=== PATIENT | male | born 1975 | race Hispanic/Latino ===

== ENCOUNTER 2021-05-22 15:49 | Emergency (ER) | payer SELFPAY ==
[2021-05-22] MEDS ORDERED: NA CHLORIDE 0.9% 2,000 ML ONE (17:13)
[2021-05-22 17:15] LABS: Absolute Lymphocytes (CBC) 2.3 K/uL (0.7-4.9); Basophils % 1.1 % (0-1.3); Hematocrit 44.4 % (39.6-49.0); Lymphocytes % 26.8 % (15.3-44.8); RBC Red Blood Cell Count 5.09 M/uL (4.33-5.43)
[2021-05-22 17:31] LABS: Urine Blood Negative (Negative); Urine Glucose 3+ (Negative); Urine Protein Negative (Negative); Urine pH 5.5 (5.0-7.0)
[2021-05-22 17:48] LABS: Urine Bacteria <20 /HPF (NONE SEEN); Urine RBC NONE SEEN /HPF (NONE SEEN)
[2021-05-22 19:32] LABS: ALT/SGPT 30 U/L (12-78); AST/SGOT 12 U/L (15-37); Albumin 3.1 g/dL (3.4-5.0); Alkaline Phosphatase 122 U/L (45-117); BUN Blood Urea Nitrogen 7 mg/dL (7-18); Bicarbonate 24 mmol/L (21-32); Bilirubin Direct < 0.1 mg/dL (0-0.2); Bilirubin Total 0.3 mg/dL (0.2-1.0); Glucose Level 321 mg/dL (74-106); Lipase 118 U/L (73-393); Potassium 3.7 mmol/L (3.5-5.1); Protein, Total 6.8 g/dL (6.4-8.2); Sodium Level 135 mmol/L (136-145)
--- NOTE | 2021-05-22 20:37 | RAD REPORT ---
EXAM DESCRIPTION: CT - [id number] - 05/22/2021 8:18 pm CLINICAL HISTORY: PAIN, head and neck COMPARISON: <Comparisons> TECHNIQUE: Axial 5 mm thick images of the head were obtained. Axial 2 mm thick images of the cervic al spine were obtained with sagittal and coronal reconstruction images generated and reviewed. All CT scans are performed using dose optimization technique as appropriate and may include automated exposure control or mA/KV adjustment according to patient size. FINDINGS: No intracranial hemorrhage, mass, edema or acute intracranial finding. No suspicion for ac cristela infarction. No extra-axial fluid collections. Mastoid air cells and paranasal sinuses are clear. No globe or orbit abnormality seen. Cervical body height and alignment are normal. No disk space narrowing. No fracture or acute bony abn ormality. Central canal detail is inherently limited. No paraspinal mass or hematoma. IMPRESSION: Negative CT head examination for acute or significant finding. Negative CT cervical spine examination for acute or significant finding.
[2021-05-22] MEDS ORDERED: NA CHLORIDE 0.9% 1,000 ML ONE (20:54)
[2021-05-22] MEDS ORDERED: INSULIN -REGULAR HUMAN 50 UNIT/0.5 ML ML ONE (20:54)
--- NOTE | 2021-05-22 21:24 | EDPHYS ---
Physician Documentation [facility] Name: Dg Woods Age: 46 yrs Sex: Male : 1975 Arrival Date: 05/22/2021 Time: 15:56 Bed 21 Private MD: ED Physician Fausto Curry HPI: 05/22 17:00 This 46 yrs old Male presents to ER via Ambulatory with complaints of Vision cp Problem. 17:00 The patient is experiencing blurred vision. Onset: The symptoms/episode began/occurred cp 20 day(s) ago. 17:00 Duration: the symptoms are intermittent. Associated signs and symptoms: Pertinent cp positives: dizziness, polyuria, Pertinent negatives: fever, headache. Patient does not utilize any form of vision correction. Severity of symptoms: in the emergency department the symptoms have improved moderately. Historical: - Allergies: 16:23 No Known Allergies; jl7 - Home Meds: 16:23 Aspirin Oral [Active]; jl7 - PMHx: 16:23 None; jl7 - PSHx: 16:23 None; jl7 - Social history:: Smoking status: unknown. ROS: 17:05 Constitutional: Negative for body aches, chills, fever, poor PO intake. cp 17:05 Eyes: Positive for blurry vision, Negative for discharge, pain, redness, vision loss. cp 17:05 ENT: Negative for drainage from ear(s), ear pain, sore throat, difficulty swallowing, difficulty handling secretions. 17:05 Cardiovascular: Negative for chest pain, edema, palpitations. 17:05 Respiratory: Negative for cough, shortness of breath, wheezing. 17:05 Abdomen/GI: Negative for abdominal pain, nausea, vomiting, and diarrhea. 17:05 Neuro: Positive for dizziness, Negative for altered mental status, loss of consciousness, syncope, weakness. 17:05 Endocrine: Positive for polyuria. 17:05 All other systems are negative. Exam: 17:10 Constitutional: The patient appears in no acute distress, alert, awake, cp non-diaphoretic, non-toxic, well developed, well nourished, overweight 17:10 Head/Face: Normocephalic, atraumatic. cp 17:10 Eyes: Periorbital structures: appear normal, Conjunctiva: normal, no exudate, no injection, Sclera: no appreciated abnormality, Lids and lashes: appear normal, bilaterally. 17:10 ENT: External ear(s): are unremarkable, Ear canal(s): are normal, clear, TM's: dullness, bilaterally, Nose: is normal, Mouth: Lips: moist, Oral mucosa: moist, Posterior pharynx: Airway: no evidence of obstruction, patent. 17:10 Neck: ROM/movement: is normal, is supple, without pain, no range of motions limitations, no meningismus. 17:10 Chest/axilla: Inspection: normal, Palpation: is normal, no crepitus, no tenderness. 17:10 Cardiovascular: Rate: normal, Rhythm: regular, Edema: is not appreciated, JVD: is not appreciated. 17:10 Respiratory: the patient does not display signs of respiratory distress, Respirations: normal, no use of accessory muscles, no retractions, labored breathing, is not present, Breath sounds: are clear throughout, no decreased breath sounds, no stridor, no wheezing. 17:10 Abdomen/GI: Inspection: abdomen appears normal, Palpation: abdomen is soft and non-tender, in all quadrants. 17:10 Skin: no rash present. 17:10 Neuro: Orientation: to person, place \T\ time. Mentation: is normal, Cerebellar function: is grossly normal, Motor: moves all fours, strength is normal, Sensation: is normal. Vital Signs: 16:18 BP 152 / 91; Pulse 84; Resp 17; Temp 97.5; Pulse Ox 99% on R/A; jl7 MDM: 19:39 Patient medically screened. 21:23 Data reviewed: vital signs, nurses notes, lab test result(s), radiologic studies, CT cp scan, and as a result, I will discharge patient. 05/22 16:37 Order name: Ketone, Serum; Complete Time: 19:39 cp 05/22 16:37 Order name: Basic Metabolic Panel; Complete Time: 19:39 cp 05/22 19:40 Interpretation: Normal except: NA 135; GLUC 321; CRE 0.49; CA 7.3. cp 05/22 16:37 Order name: CBC with Diff; Complete Time: 19:39 05/22 19:41 Interpretation: Normal except: EOSINOPHIL % 9.5; EOSA 0.8. cp 05/22 16:37 Order name: Hepatic Function; Complete Time: 19:39 cp 05/22 19:41 Interpretation: Normal except: AST 12; ALK 122; ALB 3.1; GLOB 3.7; A/G 0.8. 05/22 16:37 Order name: Lipase; Complete Time: 19:39 cp 05/22 16:37 Order name: Urine Microscopic Only; Complete Time: 19:39 05/22 16:54 Order name: ABG 05/22 16:54 Order name: ABG Arterial Blood Gas EDMS 05/22 17:30 Order name: Urine Dipstick-Ancillary; Complete Time: 19:39 EDMS 05/22 18:57 Order name: Glucose, Ancillary Testing; Complete Time: 19:39 EDMS 05/22 20:12 Order name: CT Head C Spine; Complete Time: 20:47 05/22 20:48 Interpretation: Reviewed report. 05/22 16:37 Order name: IV Saline Lock; Complete Time: 16:57 05/22 16:37 Order name: Labs collected and sent; Complete Time: 16:57 05/22 21:23 Order name: Accucheck Blood Glucose cp Administered Medications: 16:56 Drug: NS 0.9% 1000 ml Route: IV; Rate: 1 bolus; Site: left wrist; jl7 16:57 Drug: NS 0.9% 1000 ml Route: IV; Rate: 1 bolus; Site: left wrist; jl7 20:36 Drug: NovoLIN R (insulin regular human) 5 units {Co-Signature: claudette (Ruth Elder RN).} bb Route: Sub-Q; Site: right upper arm; 21:22 Follow up: Response: No adverse reaction bb 20:36 Drug: NS 0.9% 1000 ml Route: IV; Rate: 1 bolus; Site: left hand; bb 21:39 Follow up: IV Status: Completed infusion; IV Intake: 1000ml bb Disposition: 21:30 Chart complete. 05/23 07:50 Co-signature as Attending Physician, Fausto Curry MD I agree with the assessment and kdr plan of care. Disposition Summary: 05/22/21 21:23 Discharge Ordered Location: Home cp Problem: new cp Symptoms: have improved cp Condition: Stable cp Diagnosis - Diabetes mellitus due to underlying condition with hyperglycemia cp - Elevated blood-pressure reading, without diagnosis of hypertension cp Followup: cp - With: Private Physician - When: 1 - 2 days - Reason: Recheck today's complaints Discharge Instructions: - Discharge Summary Sheet cp - Hyperglycemia cp - Form - Daily Diabetes Record cp - Blood Glucose Monitoring, Adult cp - Diabetes Mellitus and Nutrition, Adult cp - How to Take Your Blood Pressure, [id number] cp - Form - Blood Pressure Record Sheet cp Forms: - Medication Reconciliation Form cp - Thank You Letter cp - Antibiotic Education cp - Prescription Opioid Use cp Prescriptions: - Metformin 500 mg Oral Tablet - take 1 tablet by ORAL route once daily for 7 days Then take 1 tablet with cp morning meals AND evening meals; 60 tablet; Refills: 0, Product Selection Permitted Signatures: Dispatcher [employer] EDMS Fausto Curry MD MD kdr Ballard, Brenda, THERON RN Sanjeev Price PA PA cp Zoraida Nichole RN RN jl7 Ruth Elder RN, ea Corrections: (The following items were deleted from the chart) 05/22 16:27 16:23 Allergies: PENICILLINS; shalonda jl7 20:15 19:54 Head Brain Wo Cont+CT.RAD.BRZ ordered. EDMS EDMS
--- NOTE | 2021-05-22 21:24 | ER ---
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 Denies N/V/D, denies headache, denies dizziness; reports pain to the back of neck. Coronavirus screen: Client denies travel out of the [place] in the last 14 days. At this time, the client does not indicate any symptoms associated with coronavirus-19. Ebola Screen: No symptoms or risks identified at this time. Initial Sepsis Screen: Does the patient meet any 2 criteria? No. Patient's initial sepsis screen is negative. Does the patient have a suspected source of infection? No. Patient's initial sepsis screen is negative. Risk Assessment: Do you want to hurt yourself or someone else? Patient reports no desire to harm self or others. Onset of symptoms was May 01, 2021. Care prior to arrival: None. 16:18 Method Of Arrival: Ambulatory [facility] 16:18 Acuity: JENNIFFER 3 jl7 Historical: - Allergies: 16:23 No Known Allergies; jl7 - Home Meds: 16:23 Aspirin Oral [Active]; jl7 - PMHx: 16:23 None; jl7 - PSHx: 16:23 None; jl7 - Social history:: Smoking status: unknown. Screenin:27 Abuse screen: Denies threats or abuse. Denies injuries from another. Nutritional jl7 screening: No deficits noted. Tuberculosis screening: No symptoms or risk factors identified. Assessment: 16:27 Reassessment: MARITA Pace in triage assessing pt. [facility] 21:38 Reassessment: Patient is alert, oriented x 3, equal unlabored respirations, skin bb warm/dry/pink. pt verbalized understanding of and agrees to plan of care discharge instructions given pt ambulated with steady gait to exit accompanied by family. Vital Signs: 16:18 BP 152 / 91; Pulse 84; Resp 17; Temp 97.5; Pulse Ox 99% on R/A; jl7 ED Course: 15:56 Patient arrived in ED. mr 16:23 Triage completed. jl7 16:27 Patient has correct armband on for positive identification. jl7 16:34 Sanjeev Hernandez PA is PHCP. cp 16:34 Fausto Curry MD is Attending Physician. cp 16:57 Initial lab(s) drawn, by ar, sent to lab. Inserted saline lock: 20 gauge in left wrist, jl7 using aseptic technique. Blood collected. 18:55 ABG Sent. jl7 19:43 Juana Moa, RN is Primary Nurse. ch4 20:17 CT Head C Spine In Process Unspecified. EDMS 21:39 IV discontinued, intact, bleeding controlled, No redness/swelling at site. Pressure bb dressing applied. 21:40 No provider procedures requiring assistance completed. bb Administered Medications: 16:56 Drug: NS 0.9% 1000 ml Route: IV; Rate: 1 bolus; Site: left wrist; jl7 16:57 Drug: NS 0.9% 1000 ml Route: IV; Rate: 1 bolus; Site: left wrist; jl7 20:36 Drug: NovoLIN R (insulin regular human) 5 units {Co-Signature: claudette (Ruth Elder RN).} bb Route: Sub-Q; Site: right upper arm; 21:22 Follow up: Response: No adverse reaction bb 20:36 Drug: NS 0.9% 1000 ml Route: IV; Rate: 1 bolus; Site: left hand; bb 21:39 Follow up: IV Status: Completed infusion; IV Intake: 1000ml bb Intake: 21:39 IV: 1000ml; Total: 1000ml. bb Outcome: 21:23 Discharge ordered by . cp 21:40 Discharged to home ambulatory, with family. bb 21:40 Condition: good 21:40 Discharge instructions given to patient, Instructed on discharge instructions, follow up and referral plans. medication usage, Demonstrated understanding of instructions, follow-up care, medications, Prescriptions given X 1. 21:41 Patient left the ED. bb Signatures: Dispatcher [facility] EDAL AlfredYadira mr LopezXenia RN RN bb Sanjeev Hernandez PA PA cp Leal, Jahala, RN RN jl7 Juana Mao, THERON THERON Elder RN, ea Corrections: (The following items were deleted from the chart) 16:27 16:23 Allergies: PENICILLINS; jl7 jl7
[2021-05-22 21:49] VITALS: BP 152/91; TEMP 97.5; O2SAT 99
== END 2021-05-22 21:41 | disposition home or self-care (01) ==
LOC: ER 15:49
DX: E11.65 Type 2 diabetes mellitus with hyperglycemia (principal); R03.0 Elevated blood-pressure reading, without diagnosis of hypertension
CPT/HCPCS: 36415; 70450; 72125; 80048; 80076; 81003; 81015; 82010; 82947; 83690; 85025; 96360; 96372; 99284; J7030